=== PATIENT | male | born 1950 | race Caucasian/White ===

== ENCOUNTER 2018-05-26 11:44 | Day surgery (SDC) | payer OTHER ==
[~2018-05-26] VITALS: Ht 157.5 cm; Wt 67.1 kg
[2018-05-26 12:42] VITALS: Ht 157.5 cm; Wt 67.1 kg
[2018-05-26] MEDS ORDERED: ALLOPURINOL PO (12:47)
[2018-05-26] MEDS ORDERED: ATORVASTATIN CALCIUM PO (12:47)
[2018-05-26] MEDS ORDERED: AMLODIPINE BESYLATE PO (12:47)
[2018-05-26] MEDS ORDERED: LOSARTAN POTASSIUM PO (12:47)
[2018-05-26 13:17] VITALS: BP 128/74; PULSE 69; RESP 15
--- NOTE | 2018-05-26 13:27 | PREAC ---
Date/Time of Note Date/Time of Note DATE: 05/26/18 TIME: 13:26 Anesthesia Eval and Record Evaluation Time Pre-Procedure Interview DATE: 05/26/18 TIME: 13:26 Age 68 Sex male NPO: 8 hrs Preoperative diagnosis Screening Planned procedure Colonoscopy Past Medical History Past Medical History: Includes Cardio: HTN, Dyslipidemia Endo: Other (high Uric Acid) Surgery & Anesthesia Issues No known issue Meds Anticoagulation: No Beta Sharif within 24 hr: No Reason Beta Sharif not given: Pt. not on B-Sharif Reported Medications [Atorvastatin Calcium] No Conflict Check, PO DAILY 05/26/18 [Losartan Potassium] No Conflict Check, PO DAILY 05/26/18 [Allopurinol] No Conflict Check, PO DAILY 05/26/18 [Amlodipine Besylate] No Conflict Check, PO DAILY 05/26/18 Meds reviewed: Yes Allergies Coded Allergies: No Known Allergy (Unverified , 05/26/18) Allergies Reviewed: Yes Labs/Studies Labs Reviewed: Reviewed by anesthesiologist test: N/A Studies: ECG (n/a), CXR (n/a) Pre-procedure Exam Airway: Adequate mouth opening, Adequate thyromental dist Mallampati: Mallampati II Teeth: Normal Lung: Normal Heart: Normal ASA Physical Status ASA physical status: 2 Emergency: None Planned Anesthetic General/MAC: MAC Planned Pain Management Parenteral pain med Pre-operative Attestations Prior to commencing anesthesia and surgery, the patient was re-evaluated, there was verification of: *The patient's identity *The results of appropriate recent lab work and preoperative vital signs *The above evaluation not changing prior to induction *Anesthetic plan, risk benefits, alternative and complications discussed with patient/family; questions answered; patient/family understands, accepts and wishes to proceed. SANTY YATES MD May 26, 2018 13:27
--- NOTE | 2018-05-26 13:46 | PAC ---
Date/Time of Note Date/Time of Note DATE: 05/26/18 TIME: 13:46 Post-Anesthesia Notes Post-Anesthesia Note Last documented vital signs T 98 Activity: WNL Respiratory function: WNL Cardiovascular function: WNL Mental status: Baseline Pain reasonably controlled: Yes Hydration appropriate: Yes Nausea/Vomiting absent: Yes SANTY YATES MD May 26, 2018 13:46
== END 2018-05-26 15:11 | disposition home or self-care (01) ==
LOC: GIL 11:44
PROVIDERS: ATTEND Internal Medicine Gastroenterology
DX: Z12.11 Encounter for screening for malignant neoplasm of colon (principal); K64.8 Other hemorrhoids; I10 Essential (primary) hypertension; E78.5 Hyperlipidemia, unspecified
CPT/HCPCS: 45378; Z7610